=== PATIENT | male | born 1990 | race Caucasian/White ===

== ENCOUNTER 2025-06-30 10:33 | Emergency (ER) | payer SELFPAY ==
[2025-06-30 10:56] VITALS: BP 138/95; PULSE 84; RESP 16; TEMP 36.8; O2SAT 98; BMI 24.4
--- NOTE | 2025-06-30 11:16 | W.ED.SKABFB ---
HPI - Skin/Abscess/Foreign Bdy General: Chief complaint: Skin/Abscess/Foreign Body Stated complaint: poss spider bite Time Seen by Provider: 06/30/25 10:35 Source: patient Mode of arrival: ambulatory Limitations: no limitations History of Present Illness: Patient is a nice 34-year-old male presents to ED today for concerns of a possible spider bite to the lateral aspect of his right thigh that he noticed 3 days ago. States he never witnessed a spider bite but states the area got dusky and had some central hemorrhagic appearance to it. He states this has since subsided and now it is just red. He has developed a mild rash to his anterior abdomen and arms. Rash seems to spare his back, upper arms, legs, face and neck. He states rash does not bother him. No new medications MD complaint: insect bite/sting Onset (ago): day(s) Tetanus up to date: yes Location: RLE Severity: mild Quality: burning Relieving factors: none Exacerbating factors: none Context: other (possible spider bite) Associated symptoms: Reports no associated symptoms; Deny chills, fever(s), nausea or vomiting Treatments prior to arrival: none Related Data Allergies Allergy/AdvReac Type Severity Reaction Status Date / Time peanut Allergy ALGY-Anaphy Verified 06/30/25 11:00 laxis Review of Systems Const: Denies: fever(s), chills, body aches, fatigue or malaise Card: Denies: chest pain Resp: Denies: dyspnea GI: Denies: abdominal pain, nausea or vomiting : Reports: other (no dark urine); Denies: flank pain or hematuria Musc: Denies: joint pain Skin/Breast: Reports: rash and other (possible spider bite) Neuro: Denies: headache(s) or dizziness Physical Exam Const: COMMON NORMALS: no acute distress, average body habitus, patient oriented x3, no limitations, healthy appearing, alert and well nourished GENERAL APPEARANCE: cooperative ORIENTATION/CONSCIOUSNESS: Yes awake, Yes oriented to person, Yes oriented to place and Yes oriented to time Neck/C-Spine: COMMON NORMALS: no lymphadenopathy Resp: COMMON NORMALS: normal respiratory effort and clear to auscultation bilaterally AUSCULTATION: clear to auscultation bilaterally Cardio: COMMON NORMALS: regular rate and regular rhythm RATE: regular rate RHYTHM: regular rhythm Extremity: COMMON NORMALS: full ROM, capillary refill normal, no joint enlargement, no clubbing, cyanosis or edema, no calf tenderness and no pedal edema GENERAL: Yes normal exam except as noted EXTREMITY IMAGE (FRONT):  1. quarter sized erythematous plaque with central pallor consistent with spider bite; no skin necrosis; no induration or abscess Neuro: COMMON NORMALS: patient oriented x3, moves all extremities, no focal motor deficits, no sensory deficits noted and gait normal SENSORIUM/ORIENTATION: Yes alert, Yes oriented to person, Yes oriented to place and Yes oriented to time Skin: NARRATIVE SKIN EXAM: morbilliform appearing rash mainly affecting his abdomen, some to forearms (sparing upper arms); rash spares other areas RASHES: rashes noted Course Vital Signs: Vital signs: Vital Signs Temperature 98.2 F 06/30/25 10:56 Pulse Rate 84 06/30/25 10:56 Respiratory Rate 16 06/30/25 10:56 Blood Pressure 138/95 06/30/25 10:56 Pulse Oximetry 98 06/30/25 10:56 Oxygen Delivery Me thod Room Air 06/30/25 10:56 MDM - Skin/Abscess/Foreign Bdy Medicial Decision Making Patient is asymptomatic. Right thigh skin lesion is consistent with a spider bite. It does not appear secondarily infected thus antibiotics are not indicated. Recommend close observation of symptoms at home. Return to ED precautions discussed. Medical Records I reviewed the patient's medical records. No radiology studies performed this visit Discharge Plan Discharge Patient Disposition: Home Clinical Impression: Accidental spider bite Condition: Stable Discharge Orders: Discharge ED (Routine); Ordered 06/30/25 Ordered By: María Spencer Patient Instructions: Brown Recluse Spider Bite, Brown Recluse Spider Bite (ED), Patient Portal & Elana Instructions Activity Restrictions/Additional Instructions: As we discussed, continue to monitor closely. We would need to see you back in the emergency department for worsening or spreading redness, warmth or worsening pain to the site, discharge or drainage, systemic symptoms like fevers, chills, vomiting, generally feeling worse or unwell, or any other concerns you may have. 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
[2025-06-30 11:26] VITALS: BP 133/85; PULSE 83; O2SAT 99
== END 2025-06-30 11:27 | disposition home or self-care (01) ==
PROVIDERS: Emergency Provider Physician Assistant
DX: T63.301A Toxic effect of unspecified spider venom, accidental (unintentional), initial encounter (principal)
CPT/HCPCS: 99282